=== PATIENT | female | born 1985 | race Caucasian/White ===

== ENCOUNTER 2016-06-24 11:49 | Emergency (ER) | payer OTHER ==
[2016-06-24 11:56] VITALS: BP 169/99
[2016-06-24] MEDS ORDERED: IMOVAX RABIES VACCINE IM ONE (12:22)
[2016-06-24] MEDS ORDERED: HYPERRAB S-D VIAL IM ONE (12:26)
--- NOTE | 2016-06-24 12:41 | PROVIDER DOCUMENTATION ---
HPI-Animal/Snake Bite Injury - General Chief Complaint: Animal Bite Stated Complaint: DOG BITE Time Seen by Provider: 06/24/16 12:06 Patient arrived via EMS?: No Source: patient Allergies/Adverse Reactions: Patient Allergies Allergy/AdvReac Type Severity Reaction Status Date / Time No Known Allergies Allergy Verified 06/24/16 12:25 Home Medications: Home Medication List Medication Instructions Recorded Confirmed Last Taken Type Amoxicillin/Pot Clavulanate 875 mg PO Q12HR #14 tablet 06/24/16 Unknown Rx [Augmentin] Gabapentin 300 mg PO TID 06/24/16 06/24/16 06/24/16 09:00 History Levonorgestrel-Ethin Estradiol 1 each PO DAILY 06/24/16 06/24/16 06/24/16 09:00 History [Trivora-28 Tablet] Tramadol/APAP [Ultracet 1 each PO Q6H PRN PRN #7 tablet 06/24/16 Unknown Rx 37.5MG/325Mg] - History of Present Illness-Bite Injuries Nature of Presenting Problem: 30 y/o WF c/o dog bite x 1 day. Pt states that she was at [facility] yesterday, when a dog "bombrushed" her- pt states dog was part pitbull and lab. Unsure if dog belonged to anyone and unsure of vaccinations UTD. States bit her in the R lateral thigh. States cleaned wound with peroxide. States tetanus is UTD. Review of Systems - Adult - REVIEW OF SYSTEMS - ADULT Constitutional: reports: no symptoms reported. denies: chills, fever Eyes: reports: no symptoms reported. denies: blurred vision, double vision Ears, Nose, Mouth & Throat: reports: no symptoms reported. denies: ear pain, nose pain Cardiovascular: reports: no symptoms reported. denies: chest pain, palpitations Respiratory: reports: no symptoms reported. denies: dyspnea on exertion, shortness of breath Gastrointestinal: reports: no symptoms reported. denies: nausea, vomiting Genitourinary: reports: no symptoms reported. denies: dysuria, frequency Musculoskeletal: reports: no symptoms reported. denies: joint pain, joint swelling Integumentary: reports: see HPI, other. denies: nail changes, rash Neurological: reports: no symptoms reported. denies: numbness, paresthesia Psychiatric: reports: no symptoms reported Endocrine: reports: no symptoms reported. denies: cold intolerance, heat intolerance Hematologic/Lymphatic: reports: no symptoms reported. denies: easy bruising, prolonged bleeding Allergic/Immunologic: reports: no symptoms reported All Other Systems: Reviewed and Negative Past History - Adult - PAST MEDICAL HISTORY-ADULT Review of Records: reports: Nursing Assessment Review, Medications Reviewed Major Childhood Illnesses: reports: denies history Cardiovascular: reports: HTN Respiratory: reports: denies history Gastrointestinal: reports: denies history Obstetrical/Gynecological: reports: endometriosis, ovarian cysts Genitourinary: reports: denies history Musculoskeletal: reports: chronic pain Neurological: reports: denies history Psychiatric: reports: anxiety Endocrine/Immune: reports: Diabetes Other Conditions: reports: denies history - PRIOR SURGERIES/PROCEDURES Surgical/Procedure History: reports: orthopedic (extremity) - PRIOR HOSPITALIZATIONS Prior Hospitalizations: reports: none - IMMUNIZATION STATUS Childhood Immunizations: See Nurse Assessment Flu Vaccine: See Nurse Assessment - FAMILY HISTORY Family History: reviewed, not pertinent - SOCIAL HISTORY Smoking: cigarettes, less than 1 pack/day Provider spent 3-5 mins advising pt. on dangers of tobacco.: Discussed manners to quit use, and f/u contacts for add'l counseling. Physical Exam-General - PHYSICAL EXAM-ADULT Initial Vital Signs Reviewed: Yes - CONSTITUTIONAL General Appearance: alert, mild distress - EYES Eyes: pink conjunctivae - HEAD, EARS, NOSE, MOUTH & THROAT HENMT: normocephalic/atraumatic, moist mucous membranes - NECK Neck: normal inspection - RESPIRATORY Respiratory: no respiratory distress - MUSCULOSKELETAL Back Exam: normal inspection Extremity: normal range of motion, normal gait, normal capillary refill, tenderness (R lateral thigh). negative: abnormal NV exam - SKIN Integumentary: normal color, normal turgor, warm/dry, ecchymosis (5 cm across, surrounding wound), other (1 cm superficial open wound to R lateral thigh) - NEUROLOGIC Neurologic: negative: aphasia, motor weakness, sensory deficit - PSYCHIATRIC Psych/Mental Status: normal mood/affect, normal thought content, normal thought process, oriented x 3 Progress - PLAN OF CARE/RESULTS Progress/Plan/Lab Results: Orders Category Date Time Status Hydrocodone/APAP 7.5 mg/325 mg [Chili-7.5] Med 06/24/16 14:06 Discontinued 1 each PO NOW ONE Ondansetron Odt [Zofran Odt] Med 06/24/16 14:06 Discontinued 4 mg PO NOW ONE Rabies Immune Globulin [Hyperrab S-D Vial] Med 06/24/16 12:26 Discontinued 1,180 unit IM .ONCE ONE Rabies Vacc, Human Diploid/Pf [Imovax Rabies Vaccine] Med 06/24/16 12:22 Discontinued 2.5 unit IM .ONCE ONE Vital Signs Temp Pulse Resp BP Pulse Ox 06/24/16 11:55 98.5 F 75 18 169/99 98 No Known Allergies Allergy (Verified 06/24/16 12:25) Amoxicillin/Pot Clavulanate [Augmentin] 875 mg PO Q12HR #14 tablet 06/24/16 Gabapentin 300 mg PO TID 06/24/16 Levonorgestrel-Ethin Estradiol [Trivora-28 Tablet] 1 each PO DAILY 06/24/16 Tramadol/APAP [Ultracet 37.5MG/325Mg] 1 each PO Q6H PRN PRN #7 tablet 06/24/16 Discussed wound care and f/u for further rabies PEP care. Pt given a copy of the outpatient orders for days 0,3,7, 21. Departure - Departure Time of Disposition Order: 12:45 DIAGNOSIS: Need for post exposure prophylaxis for rabies Dog bite Qualifiers: Encounter type: initial encounter Qualified Code(s): W54.0XXA - Bitten by dog, initial encounter Disposition: HOME 01 Certified Medical Emergency: Emergent Condition: Stable Additional Instructions: Keep wound clean and dry. Take medications as directed. Follow up for further rabies prophylaxis as directed. ED Follow Up Instructions: You have been treated by a care provider in the Emergency Department. These instructions are being provided to you so you can have an understanding of how to care for yourself upon discharge. Upon discharge from the Emergency Department, you are responsible for making arrangements for follow-up care by a physician of your choice. Take all prescribed medications as directed. Return to the Emergency Department immediately for any new or worsening symptoms. You may call the Physician Referral phone number at [phone] to obtain a list of Physicians who are taking new patients. Prescriptions: Amoxicillin/Pot Clavulanate [Augmentin] 875 mg PO Q12HR #14 tablet Tramadol/APAP [Ultracet 37.5MG/325Mg] 1 each PO Q6H PRN PRN #7 tablet PRN Reason: Pain Referrals: Tu Irby [Primary Care Provider] - Instructions: Rabies Immune Globulin, human RIG solution for injection, Animal Bite Attestation - Physician/ KOLTON Attestation Patient care was provided by Advanced Practice Provider:: Yes Advanced Practice Provider:: Chrissie Aquino Advanced Practice Provider documentation review:: The Mid-level provider documentation, treatment plan and medical decision making was reviewed by the physician who agrees with all treatment and medical decision making by the MLP.
[2016-06-24] MEDS ORDERED: NORCO-7.5 PO ONE (14:06)
[2016-06-24] MEDS ORDERED: ZOFRAN ODT PO ONE (14:06)
== END 2016-06-24 14:25 | disposition home or self-care (01) ==
LOC: ED 11:49
DX: S71.151A Open bite, right thigh, initial encounter (principal); M79.651 Pain in right thigh; I10 Essential (primary) hypertension; G89.29 Other chronic pain; E11.9 Type 2 diabetes mellitus without complications; F17.210 Nicotine dependence, cigarettes, uncomplicated; Z79.899 Other long term (current) drug therapy; Z23 Encounter for immunization; Z71.6 Tobacco abuse counseling; Z87.42 Personal history of other diseases of the female genital tract; W54.0XXA Bitten by dog, initial encounter
CPT/HCPCS: 90375; 90471; 90675; 96372